=== PATIENT | female | born 1960 | race Caucasian/White ===

== ENCOUNTER 2020-05-28 12:50 | Outpatient (CLI) | payer OTHER ==
[~2020-05-28 12:50] MED LIST: Iopamidol-370 76% 500 ML 1 ML ONE
[2020-05-28 13:22] LABS: Estimated GFR-MDRD - POC Greater than 90
== END 2020-05-28 12:51 | disposition home or self-care (01) ==
LOC: BICCT 12:50
PROVIDERS: ATTEND Urology
DX: Z08 Encounter for follow-up examination after completed treatment for malignant neoplasm (principal); Z85.528 Personal history of other malignant neoplasm of kidney; Z98.890 Other specified postprocedural states
CPT/HCPCS: 71046; 74177; 82565; Q9967

== ENCOUNTER 2022-11-08 07:46 | Outpatient (CLI) | payer OTHER | END 2022-11-08 07:47 | disposition home or self-care (01) | LOC: ULT 07:46 | PROVIDERS: ATTEND Nurse Practitioner Family | DX: R10.84 Generalized abdominal pain (principal) | CPT/HCPCS: 76700 ==

== ENCOUNTER 2023-11-27 13:39 | Outpatient (CLI) | payer BC | END 2023-11-27 13:40 | disposition home or self-care (01) | LOC: SCSRAD 13:39 | PROVIDERS: ATTEND Nurse Practitioner Family | DX: S92.531A Displaced fracture of distal phalanx of right lesser toe(s), initial encounter for closed fracture (principal) ==